=== PATIENT | male | born 2000 | race Caucasian/White ===

== ENCOUNTER 2018-12-01 07:57 | Outpatient (CLI) | payer BC ==
--- NOTE | 2018-12-01 08:48 | ULT ---
RIGHT UPPER QUADRANT ULTRASOUND: HISTORY: Abdominal pain. FINDINGS: The liver, pancreas, and right kidney appear normal. There are tiny mobile shadowing gallstones with out gallbladder wall thickening or pericholecystic fluid. The common duct measures 3 mm in diameter. No free fluid is seen in the Morison's pouch. IMPRESSION: Cholelithiasis. POS: [facility]
== END 2018-12-01 07:58 | disposition home or self-care (01) ==
LOC: SCSULT 07:57
PROVIDERS: ATTEND Family Medicine
DX: R10.9 Unspecified abdominal pain (principal); K80.20 Calculus of gallbladder without cholecystitis without obstruction
CPT/HCPCS: 76705